=== PATIENT | female | born 1985 | race Caucasian/White ===

== ENCOUNTER 2016-07-12 13:48 | Emergency (ER) | payer SELFPAY ==
[~2016-07-12] VITALS: Ht 152.4 cm; Wt 64.5 kg
[~2016-07-12 13:48] MED LIST: IRON325 M1 PO; MOTRIN 600600 MG/TAB PO; NORCO 325 MG-51 TAB PO; PERCOCET 325 MG1 TA2 PO; PRENATAL VITAMI1 TAB PO
[2016-07-12 13:50] VITALS: TEMP 97.7
[2016-07-12 15:28] LABS: PH 7 (5-8); URINE APPEARANCE Clear; URINE BACTERIA None Seen /hpf; URINE BILIRUBIN Negative (NEGATIVE); URINE BLOOD 3+ (NEGATIVE); URINE COLOR Yellow; URINE GLUCOSE Negative (NEGATIVE); URINE KETONE Negative (NEGATIVE); URINE RBC >50 /hpf; URINE UROBILINOGEN Negative (NEGATIVE)
[2016-07-12 15:31] LABS: BASO % 0.4 % (0.0-2.0); EOS # 0.3 (0.0-0.7); EOS % 3.9 % (0-4.0); GRAN # 4.6 (1.4-6.5); GRAN % 61.5 % (42.2-75.2); LYMPH % 26.8 % (20.0-51.0); MEAN CELL VOLUME 78 fl (80.0-100.0); MEAN CORPUSCULAR HGB CONC 32 g/dl (33.0-37.0); MEAN PLATELET VOLUME 11.6 fl (7.4-10.4); MONO # 0.5 (0.1-0.6); MONO % 7.1 % (1.7-9.3); PLATELET COUNT 177 K/mm3 (130-400); RED BLOOD COUNT 4.54 M/mm3 (4.10-5.30); WHITE BLOOD COUNT 7.5 K/mm3 (4.8-10.8)
[2016-07-12 15:33] LABS: HEMATOCRIT 35.5 % (37.0-47.0); HEMOGLOBIN 11.5 g/dl (12.5-16.0); MEAN CORPUSCULAR HEMOGLOBIN 25 pg (27.0-31.0)
[2016-07-12 15:45] LABS: ADJUSTED CALCIUM 8.6 mg/dL (8.4-10.2); ALANINE AMINOTRANSFERASE 34 U/L (9-52); ALBUMIN 4.2 gm/dL (3.5-5.0); ALKALINE PHOSPHATASE 87 U/L (50-136); AMYLASE 119 U/L (30-110); ANION GAP 12 mmol/L (7-16); BILIRUBIN,TOTAL 0.4 mg/dL (0.0-1.0); BLOOD UREA NITROGEN 11 mg/dL (7-17); CALCIUM 8.8 mg/dL (8.4-10.2); CARBON DIOXIDE 23 mmol/L (22-30); CHLORIDE 102 mmol/L (98-107); CREATININE, serum 0.54 mg/dL (0.52-1.25); GLUCOSE 95 mg/dL (74-106); LIPASE 244 U/L (23-300); POTASSIUM 3.4 mmol/L (3.4-5.0); SODIUM 137 mmol/L (137-145); TOTAL PROTEIN 7.8 gm/dL (6.4-8.2)
[2016-07-12 15:46] LABS: C-REACTIVE PROTEIN < 0.5 mg/dL (0.0-0.9)
[2016-07-12] MEDS ORDERED: CIPRO 500MG TA500 MG PO (17:04)
[2016-07-12 17:21] VITALS: BP 107/70; PULSE 72
== END 2016-07-12 17:22 | disposition home or self-care (01) ==
LOC: COL.ER 13:48
PROVIDERS: Emergency Medicine
DX: R10.13 Epigastric pain (principal); N30.80 Other cystitis without hematuria; Z90.79 Acquired absence of other genital organ(s); R19.01 Right upper quadrant abdominal swelling, mass and lump; J84.10 Pulmonary fibrosis, unspecified; N75.0 Cyst of Bartholin's gland
CPT/HCPCS: J0696; J2765; J7030

== ENCOUNTER → 2018-09-07 | Emergency (ER) | payer SELFPAY ==
[~2018-09-07] VITALS: Wt 68.2 kg
[~2018-09-07] MED LIST changes: +AMOXICILLIN 8751 TAB PO; +BACTRIM DS 8001 TAB PO; +CIPRO 500MG TA500 MG PO
[2018-09-07 19:41] VITALS: BP 152/88; TEMP 98.3
[2018-09-07 22:50] VITALS: PULSE 85
== END ==
LOC: COL.ER 19:38
DX: N76.4 Abscess of vulva (principal)

== ENCOUNTER 2018-09-13 12:31 | Emergency (ER) | payer SELFPAY ==
[~2018-09-13] VITALS: Ht 157.5 cm; Wt 63.6 kg
[~2018-09-13 12:31] MED LIST changes: -AMOXICILLIN 8751 TAB PO; -BACTRIM DS 8001 TAB PO
[2018-09-13 12:34] VITALS: BP 140/86
[2018-09-13] MEDS ORDERED: BACTRIM DS 8001 TAB PO (12:57)
[2018-09-13] MEDS ORDERED: AMOXICILLIN 8751 TAB PO (13:05)
[2018-09-13 13:17] VITALS: PULSE 77; TEMP 98.7
== END 2018-09-13 13:14 | disposition home or self-care (01) ==
LOC: COL.ER 12:31
DX: N90.89 Other specified noninflammatory disorders of vulva and perineum (principal)

== ENCOUNTER 2019-08-30 18:53 | Emergency (ER) | payer SELFPAY ==
[~2019-08-30] VITALS: Ht 152.4 cm; Wt 72.7 kg
[~2019-08-30 18:53] MED LIST changes: +AMOXICILLIN 8751 TAB PO; +BACTRIM DS 8001 TAB PO
[2019-08-30 18:56] VITALS: BP 125/85; TEMP 98.4
[2019-08-30 19:26] LABS: BASO % 0.4 % (0.0-2.0); EOS # 0.2 (0.0-0.7); GRAN # 6.5 (1.4-6.5); GRAN % 71.2 % (42.2-75.2); HEMOGLOBIN 12.3 g/dl (12.5-16.0); LYMPH # 1.9 (1.2-3.4); LYMPH % 20.8 % (20.0-51.0); MEAN CELL VOLUME 82 fl (80.0-100.0); MEAN CORPUSCULAR HEMOGLOBIN 27 pg (27.0-31.0); MEAN CORPUSCULAR HGB CONC 32 g/dl (33.0-37.0); MEAN PLATELET VOLUME 11.6 fl (7.4-10.4); MONO # 0.5 (0.1-0.6); MONO % 5.4 % (1.7-9.3); PLATELET COUNT 231 K/mm3 (130-400); RED BLOOD COUNT 4.65 M/mm3 (4.10-5.30); REDCELL DISTRIBUTION WIDTH-CV 13.6 % (11.5-14.5)
[2019-08-30 19:29] LABS: INR 0.9 (0.8-3.0); PROTHROMBIN TIME 10.5 SECONDS (9.7-12.8)
[2019-08-30 19:32] LABS: PARTIAL THROMBOPLASTIN TIME 29.1 SECONDS (26.0-37.0)
[2019-08-30 19:34] LABS: ALANINE AMINOTRANSFERASE 22 U/L (9-52); ALBUMIN 4.2 gm/dL (3.5-5.0); ALKALINE PHOSPHATASE 79 U/L (50-136); ANION GAP 10 mmol/L (7-16); AST,SGOT 24 U/L (15-37); BILIRUBIN,TOTAL 0.3 mg/dL (0.0-1.0); BLOOD UREA NITROGEN 15 mg/dL (7-17); CALCIUM 8.8 mg/dL (8.4-10.2); CARBON DIOXIDE 24 mmol/L (22-30); CHLORIDE 105 mmol/L (98-107); CREATININE, serum 0.49 (0.52-1.25); GLUCOSE 129 mg/dL (74-106); POTASSIUM 3.6 mmol/L (3.4-5.0); SODIUM 140 mmol/L (137-145); TOTAL PROTEIN 7.6 gm/dL (6.4-8.2)
[2019-08-30 19:45] LABS: TROPONIN-I < 0.012 ng/mL (0.000-0.035)
[2019-08-30 22:22] VITALS: PULSE 70
== END 2019-08-30 22:22 | disposition home or self-care (01) ==
LOC: COL.ER 18:53
PROVIDERS: Family Medicine
DX: R07.89 Other chest pain (principal)

== ENCOUNTER 2021-08-09 22:15 | Emergency (ER) | payer SELFPAY ==
[~2021-08-09] VITALS: Ht 152.4 cm; Wt 68.2 kg
[2021-08-09 23:06] LABS: BASO % 0.4 % (0.0-2.0); EOS # 0.4 K/mm3 (0.0-0.7); EOS % 3.5 % (0.0-4.0); GRAN # 6.7 K/mm3 (1.4-6.5); GRAN % 65.7 % (42.2-75.2); HEMATOCRIT 38.7 % (37.0-47.0); HEMOGLOBIN 12.6 g/dl (12.5-16.0); LYMPH # 2.3 K/mm3 (1.2-3.4); LYMPH % 22.9 % (20.0-51.0); MEAN CELL VOLUME 78 fl (80.0-100.0); MEAN CORPUSCULAR HEMOGLOBIN 25 pg (27-31); MEAN CORPUSCULAR HGB CONC 33 g/dl (33.0-37.0); MEAN PLATELET VOLUME 12.9 fl (7.4-10.4); MONO # 0.7 K/mm3 (0.1-0.6); MONO % 7.3 % (1.7-9.3); PLATELET COUNT 200 K/mm3 (130-400); RED BLOOD COUNT 4.99 M/mm3 (4.10-5.30); REDCELL DISTRIBUTION WIDTH-CV 14.2 % (11.5-14.5)
[2021-08-09 23:28] LABS: ALBUMIN 3.9 gm/dL (3.5-5.0); BILIRUBIN,TOTAL 0.3 mg/dL (0.2-1.2); C-REACTIVE PROTEIN 4.29 mg/dL (0.00-0.50); CALCIUM 8.7 mg/dL (8.4-10.2); CREATININE, serum 0.71 mg/dL (0.57-1.11); POTASSIUM 3.7 mmol/L (3.5-4.5); TOTAL PROTEIN 7.9 gm/dL (6.2-8.1)
[2021-08-10 03:10] VITALS: BP 133/89; PULSE 73; TEMP 98.4
== END 2021-08-10 03:10 | disposition short-term general hospital (02) ==
LOC: COL.ER 22:15
PROVIDERS: Emergency Medicine
DX: K12.2 Cellulitis and abscess of mouth (principal)
CPT/HCPCS: J1100; J1956; J2270; J2405; J7030; Q9967